=== PATIENT | male | born 1950 | race Caucasian/White ===

== ENCOUNTER 2016-07-03 10:11 | Emergency (ER) | payer MEDICARE ==
[~2016-07-03] VITALS: Ht 152.4 cm; Wt 95.3 kg
[2016-07-03 10:35] LABS: BASO # 0.1 10*3/uL (0.0-0.1); BASO % 0.7 % (0.0-1.0); EOS # 0.3 10*3/uL (0.0-0.4); EOS % 3.9 % (1.0-4.0); HEMATOCRIT 42.4 % (42.0-52.0); LYMPH # 2.7 10*3/uL (1.3-4.4); LYMPH % 37.4 % (27.0-41.0); MEAN CELL VOLUME 88.9 fl (80.0-94.0); MEAN CORPUSCULAR HGB 29.4 pg (27.0-31.0); MONO # 0.8 10*3/uL (0.1-1.0); MONO % 11.4 % (3.0-9.0); NEUT # 3.3 10*3/uL (2.3-7.9); NEUT % 46.3 % (47.0-73.0); PLATELET COUNT AUTOMATED 330 10*3/uL (130-400); RED BLOOD COUNT 4.77 10*6/uL (4.50-5.90); WHITE BLOOD COUNT 7.2 10*3/uL (4.8-10.8)
[2016-07-03 10:46] LABS: BUN 11 mg/dl (7-24); CARBON DIOXIDE 30 mmol/L (21-32); CHLORIDE 106 mmol/L (98-107); EST GLOM FILT AFRICAN AMERICAN > 60 ml/min; GLUCOSE 82 mg/dL (65-99); POTASSIUM 4.2 mmol/L (3.5-5.1); SODIUM 143 mmol/L (136-145)
[2016-07-03 12:16] LABS: BILIRUBIN NEGATIVE (NEGATIVE); BLOOD NEGATIVE (NEGATIVE); CLARITY CLEAR (CLEAR); COLOR YELLOW (YELLOW); GLUCOSE NEGATIVE (NEGATIVE); KETONE NEGATIVE (NEGATIVE); LEUKO ESTERASE NEGATIVE (NEGATIVE); NITRITE NEGATIVE (NEGATIVE); PH 5.5 (5.0-9.0); PROTEIN NEGATIVE (NEGATIVE); SPECIFIC GRAVITY <= 1.005 (1.005-1.030); UROBILINOGEN 0.2 E.U./dl (0.2-1.0)
[2016-07-03 12:22] LABS: WBC 0-2 wbc/hpf (0-5)
[2016-07-03 12:23] LABS: BACTERIA TRACE; EPITHELIAL CELLS 0-2
[2016-07-03 12:26] LABS: URINE AMPHETAMINES < 1000 (1000ng/ml); URINE BARBITURATES < 200 (200ng/ml); URINE COCAINE < 300 (300ng/ml); URINE REFLEX COMMENT NO (NO)
[2016-07-03] MEDS ORDERED: COLACE100 MG PO (17:37)
== END 2016-07-03 16:25 | disposition home or self-care (01) ==
LOC: ED 10:11
PROVIDERS: Emergency Medicine
DX: F43.21 Adjustment disorder with depressed mood (principal)

== ENCOUNTER 2016-07-03 16:51 | Inpatient (IN) | payer MEDICARE, MEDICAID ==
[~2016-07-03] VITALS: Ht 175.2 cm; Wt 100.8 kg
--- NOTE | ~2016-07-03 | CON ---
[place], [place] REPORT OF CONSULTATION [id number] UNIT #: [id number] ROOM: 314 DOCTOR: RAFAELA KUHN ED.D (DEREK) BIRTHDATE: [birth year] DOS: 07/04/2016 HISTORY OF PRESENT ILLNESS: The patient is a 65-year-old male referred by Dr. Engle for counseling/evaluation. At the present time, this patient is on the [facility] at [facility]. States he is single and has never been . He has no children. He does have a sister but he does not have much contact with her. He did not have a family doctor at this time, but he was diagnosed with hypertension and did agree to take lisinopril for his hypertension. He denies any significant substance abuse issues. This patient is awake, alert and oriented in all 3 spheres, but appeared to be depressed. He does not appear to be having active hallucinations and denies any suicidal ideation or plan. He states he has never been evaluated or treated by a mental health professional in the past. This patient indicates that he met someone online and decided to come down to [place], [place] to meet up with her and unfortunately this relationship did not work. He became extremely depressed and felt suicidal after the breakup of this brief relationship. He felt like "driving off a bridge." At the present time, he adamantly denies any suicidal ideation or plan and states he will do nothing to harm himself. The plan is to return to his home in [place], [place] and resume his activities. He states he is very active, going to the library and walking, but he does remain somewhat socially isolated DIAGNOSIS: Major depressive disorder, recurrent. RECOMMENDATIONS: 1. Take antidepressant medication as prescribed. 2. Continue activities outside the home once he returns to his home. Thank you very much for this consult. RAFAELA KUHN ED.D CM:CONSTR:REPORT OF CONSULTATION 1525 07/05/16 0511 interface RANCHO ENGLE MD
--- NOTE | ~2016-07-03 | PR ---
[place], [place] PROGRESS NOTE NAME: [facility]S JR [id number] UNIT #: [id number] ROOM: 314 DOCTOR: LAZARUS LANGLEY BIRTHDATE: [birth year] DOS: 07/06/2016 CHIEF COMPLAINT: "Good morning." SUMMARY OF VISIT: The patient approached me when I got close to him at the breakfast table, very hypomanic, manic, just firing words at me over and over and over. It should be also noted that nursing brought to my attention that last night, he has in the past stated with Dr. Rodriguez and Dr. Engle and even nurses that he has never been evaluated or treated for any kind of mental health issues; however, he was using very specific therapy terms as think and thinking, fake it till you make it. Just all this stereotypical phrases that you would hear somebody used, that has been in some form of therapy or counseling in the past. It should also be noted that when the milieu was helping him get ready for bed, he has significant gynecomastia, which may mean that he has been on some type of antipsychotic meds in the past. He used similar verbiage with me as far as think and thinking, fake it till you make it, take the bull by the horns, etc. MENTAL STATUS: He is alert and oriented to person, place, approximate time. Again, he is hypomanic, difficult to redirect. He needs to say when he needs say and he expects us to listen. He is not irritable in confrontational with me like he was yesterday. He does not know his boundaries. He is very much in personal space. Nursing has noted that has been an ongoing issue with him that he is not cognizant of boundaries and personal space. PLAN: We are going to increase the Remeron to 30 mg yesterday. I am going to add 40 mg of Latuda. If this is bipolar, it should take the edge off, but also if this is major depression, recurrent, severe, it will help with some treatment resistant depression. Again, I am reading through Dr. Engle's notes and Dr. Rodriguez's notes, the patient has denied any psych evaluations, treatment or anything in the past, but his behaviors and statements kind of imply otherwise. We are going to keep an eye on him. We will try to and continue to engage in individual and driver milieu therapy with a plan to discharge when stable. [place], [place] PROGRESS NOTE NAME: MEHRAN MILLS JR UNIT #: [id number] ROOM: [facility] DOCTOR: LAZARUS LANGLEY BIRTHDATE: [birth year] ROMY LANGLEY CNP CM:PNTRANS [phone] LAZARUS LANGLEY 07/06/16 2316 interface
--- NOTE | ~2016-07-03 | WRIGHTHP ---
[place], [place] PATIENT HISTORY AND PHYSICAL EXAM NAME: MEHRAN MILLS UNIT #: [id number] ROOM: 314 DOCTOR: RANCHO STAFFORD MD BIRTHDATE: [birth year] DOS: 07/04/2016 INITIAL PSYCHIATRIC EVALUATION DATE OF ADMISSION: 07/03/2016 CHIEF COMPLAINT: "I just went from being so high to so low, it was just a big change for me." HISTORY OF PRESENT ILLNESS: This is a 65-year-old white male who presented with increased depression with suicidal thoughts and a plan. Apparently, the patient had been involved in a phone relationship with a girl in [place], [place]. He stated that he believed that this relationship was going somewhere so he left [place] to come to visit her in the hopes of furthering their relationship, but once there, the relationship quickly eroded and ended causing him to feel increasingly depressed and despondent. He reports that he was not sleeping well, eating well and was having fleeting suicidal thoughts with a plan. The patient denies a previous history of depression or any previous counseling or psychiatric intervention. He is admitted now to rule out organic factors and attempt to stabilize on medication. PAST MEDICAL HISTORY: Remarkable for hypertension, anemia and obesity. MENTAL STATUS: The patient is alert and oriented x 3. Mood is overwhelmingly depressed. Affect is flat and blunted with a constricted range. There is no hypomania or srini, although some of his impulsivity is questionable. There are no auditory or visual hallucinations. No delusions, no paranoia. Short, intermediate, and long-term memory are intact. DIAGNOSIS: Major depression, recurrent, severe, rule out bipolar disorder. PLAN: He has already been started on Remeron 15 mg at bedtime. I will further evaluate over the next 24 hours to determine if truly there is a hypomanic quality or if this [place] II issues. We will engage in individual and driver milieu activity. We will consult Dr. Vishnu Rodriguez for counseling, intervention and plan to discharge then when psychiatrically stable. [place], [place] PATIENT HISTORY AND PHYSICAL EXAM NAME: MEHRAN MILLS UNIT #: [id number] ROOM: 314 DOCTOR: RANCHO STAFFORD MD BIRTHDATE: [birth year] RANCHO STAFFORD MD CM:SHERRIES:PATIENT HISTORY AND PHYSICAL EXAMINATION [phone] RANCHO STAFFORD MD 07/04/16 0755 interface
--- NOTE | ~2016-07-03 | PR ---
[place], [place] PROGRESS NOTE NAME: [facility]S JR [id number] UNIT #: [id number] ROOM: 314 DOCTOR: LAZARUS LANGLEY BIRTHDATE: [birth year] DOS: 07/07/2016 CHIEF COMPLAINT: "Good morning, I worked the program and ready to go home." SUMMARY OF VISIT: The patient was assessed in his room where he asked if he could go home or stated that he wanted to go home. I advised him that this should be evaluated tomorrow by Dr. Engle but I did not feel that he was stable enough at this point to entertain that. He accepted my statement. Apparently, he was still quite intrusive and inappropriate with staff, yesterday reaching out wanting to grab their name badge that he wanted to know their full name, etc., even if they once taking care of him. MENTAL STATUS: He is alert and oriented to person, place, and approximate time. I still feel he is slightly hypomanic and I do feel that he does have a history of psychiatric treatment if not psychiatric stays. I know he is told myself, Dr. Engle and Dr. Rodriguez that he has never been evaluated, but he knows the verbiage, he knows protocols, still is struggling with knowing appropriate boundaries. PLAN: He is on Remeron 30 mg at bedtime. I am going to increase his Latuda to 60. We will continue to try to engage in individual and driver milieu therapy, redirect him when he is inappropriate. I did bring this up to him again that he needs to allow people personal space and boundaries. He acknowledged, he understood it, but I do not know that he can control it. We will continue to try to engage in individual and driver milieu therapy with the plan to discharge once stable. ROMY LANGLEY CNP CM:PNTRANS [phone] LAZARUS LANGLEY 07/07/161824 interface
--- NOTE | ~2016-07-03 | PR ---
[place], [place] PROGRESS NOTE NAME: [id number] UNIT #: [id number] ROOM: 314 DOCTOR: LAZARUS LANGLEY BIRTHDATE: [birth year] DOS: 07/05/2016 SUMMARY OF VISIT: The patient was interviewed in the dining room. He was very irritable, wants to know my name again, what my role was here and then would just start barking orders at me, I could not redirect him. Nursing also states that over the last 24 hours, he has been in appropriate, irritable, intrusive, quite unpleasant. MENTAL STATUS: He is alert and oriented x3. I do feel that his mood is overwhelmingly depressed. This is where the irritability is coming from. His affect is little flat and blunted. He just does not have any patience right now and is lashing out. There are no overt signs of auditory or visual hallucinations, delusions, paranoia, srini or hypomania. Overall, it appears that his memory is intact. PLAN: We started him on Remeron low dose yesterday. I am going to go ahead and bump that up to 30 and see if I can get ahead of this depression. With him been being male, he may respond better to the higher dosage. I may have to augment with an antipsychotic if he does not improve. He was seen by Dr. Rodriguez yesterday who basically stated that just major depression disorder, recurrent. He had a failed relationship, came over here to [place], [place] to meet up with somebody who he met online, it did not work out, and he is feeling suicidal and depressed. We will continue to try to engage in individual and drivre milieu therapy, continue to redirect and plan to discharge once stable. ROMY LANGLEY CNP CM:PNVIET [id number] LAZARUS LANGLEY 07/06/16 0030 interface
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
[2016-07-03] MEDS ORDERED: COLACE100 MG PO (17:37)
[2016-07-03 17:45] VITALS: BP 151/86
[2016-07-03 20:04] VITALS: BP 148/73
[2016-07-04 07:36] LABS: BASO # 0.1 10*3/uL (0.0-0.1); BASO % 0.8 % (0.0-1.0); EOS # 0.6 10*3/uL (0.0-0.4); EOS % 7.6 % (1.0-4.0); HEMATOCRIT 43.5 % (42.0-52.0); HEMOGLOBIN 14.3 g/dl (14.0-18.0); LYMPH # 2.4 10*3/uL (1.3-4.4); MEAN CELL VOLUME 89.1 fl (80.0-94.0); MEAN CORPUSCULAR HGB 29.3 pg (27.0-31.0); MEAN CORPUSCULAR HGB CONC 32.9 g/dl (33.0-37.0); MEAN PLATELET VOLUME 10.1 fl (9.6-12.3); MONO # 0.8 10*3/uL (0.1-1.0); MONO % 10.6 % (3.0-9.0); NEUT # 3.5 10*3/uL (2.3-7.9); NEUT % 47.9 % (47.0-73.0); PLATELET COUNT AUTOMATED 330 10*3/uL (130-400); RED BLOOD COUNT 4.88 10*6/uL (4.50-5.90); RED CELL DISTRI WIDTH 14.2 % (0-14.5); WHITE BLOOD COUNT 7.3 10*3/uL (4.8-10.8)
[2016-07-04 07:47] VITALS: BP 144/83
[2016-07-04 07:47] LABS: BUN 11 mg/dl (7-24); CARBON DIOXIDE 30 mmol/L (21-32); CHLORIDE 107 mmol/L (98-107); EST GLOM FILT AFRICAN AMERICAN > 60 ml/min; GLUCOSE 109 mg/dL (65-99); POTASSIUM 4.4 mmol/L (3.5-5.1); SODIUM 143 mmol/L (136-145)
[2016-07-04 10:13] LABS: VITAMIN D, 25-HYDROXY 27.9 ng/mL (30-100)
[2016-07-04 18:52] LABS: BILIRUBIN NEGATIVE (NEGATIVE); BLOOD NEGATIVE (NEGATIVE); CLARITY CLEAR (CLEAR); COLOR YELLOW (YELLOW); GLUCOSE NEGATIVE (NEGATIVE); KETONE NEGATIVE (NEGATIVE); LEUKO ESTERASE NEGATIVE (NEGATIVE); NITRITE NEGATIVE (NEGATIVE); PH 7.5 (5.0-9.0); PROTEIN NEGATIVE (NEGATIVE); SPECIFIC GRAVITY <= 1.005 (1.005-1.030); UROBILINOGEN 0.2 E.U./dl (0.2-1.0)
[2016-07-04 19:00] LABS: EPITHELIAL CELLS 0-2; URINE REFLEX COMMENT NO (NO)
[2016-07-04 20:08] VITALS: BP 134/71
[2016-07-05 07:59] VITALS: BP 156/77
[2016-07-05 19:41] VITALS: BP 108/49
[2016-07-06 07:51] VITALS: BP 130/66
[2016-07-06 19:54] VITALS: BP 143/78
[2016-07-07 07:44] VITALS: BP 129/69
[2016-07-07 21:11] VITALS: BP 140/28
[2016-07-08 07:43] VITALS: BP 120/68
[2016-07-08] MEDS ORDERED: LATU60TA PO (08:50)
[2016-07-08] MEDS ORDERED: VITAMIN D50000 I3 PO (08:50)
[2016-07-08] MEDS ORDERED: MIRTAZAPINE30 M2 PO (08:50)
[2016-07-08] MEDS ORDERED: LISINOPRIL20 MG PO (10:02)
== END 2016-07-08 12:10 | disposition home or self-care (01) | DRG 885 ==
LOC: 3N 16:51
PROVIDERS: Internal Medicine; Psychiatry & Neurology Psychiatry
DX: F33.2 Major depressive disorder, recurrent severe without psychotic features (principal); I10 Essential (primary) hypertension; E66.09 Other obesity due to excess calories; K59.00 Constipation, unspecified; F43.21 Adjustment disorder with depressed mood; Z82.49 Family history of ischemic heart disease and other diseases of the circulatory system; Z79.899 Other long term (current) drug therapy; Z68.32 Body mass index [BMI] 32.0-32.9, adult